=== PATIENT | female | born 1960 | race Caucasian/White ===

== ENCOUNTER → 2016-11-25 | Outpatient (CLI) | payer MEDICARE, MEDICAID ==
[~2016-11-25] MED LIST: ASPI-906 PO; FENO54TA PO; LVT.088T PO
--- NOTE | 2016-11-27 07:48 | Diagnostic Imaging Report ---
Digital mammogram bilateral screening with tomosynthesis. At this time, there are no current complaints. The study was compared to prior exams of 11/12/15, 11/19/14 and 09/20/13. The current study was also evaluated with a Computer Aided Detection (CAD) system. FINDINGS: There are scattered fibroglandular densities in both breasts which could obscure a lesion. When compared to the prior study, there has been no significant change. There is no primary or secondary sign of malignancy noted. The 3D tomographic views also fail to show any sign of malignancy. IMPRESSION: There is no evidence of malignancy. ACR BI-RADS Category 1: Negative. Result letter will be mailed to the patient. Note: At least 10% of breast cancer is not imaged by mammography. Dictated by: Dictated on workstation # [id number]
== END ==
LOC: RAD 09:58
PROVIDERS: ATTEND Nurse Practitioner Community Health
DX: Z12.31 Encounter for screening mammogram for malignant neoplasm of breast (principal)
CPT/HCPCS: 77067

== ENCOUNTER → 2017-12-30 | Outpatient (CLI) | payer MEDICAID, MEDICARE ==
--- NOTE | 2017-12-30 17:40 | Diagnostic Imaging Report ---
PROCEDURE: CT right lower extremity without contrast. TECHNIQUE: Axially acquired CT was obtained through the right lower extremity without intravenous contrast. Coronal and sagittal reformations were also performed. INDICATION: Acetabular fracture. Hip pain. No relevant comparison is available. FINDINGS: There is no current hip dislocation. There are severe end-stage arthritic changes present of the right hip with advanced joint space loss, acetabular and femoral head osteophyte formation and sclerosis. There are also findings of collapse and lucency within the right femoral head compatible with underlying osteonecrosis. There are fractures demonstrated at the anterior aspect of the inferior ramus at the symphysis and also of the mid inferior ramus. This is mildly displaced. There are fractures present through the anterior column of the acetabular roof. No definitive posterior column fracture is evident. There is no diastasis of the SI joint or the pubic symphysis. There is a questioned insufficiency-type fracture through the visualized portion of the right sacrum. IMPRESSION: 1. Anterior column acetabular fracture with fractures of the anterior acetabular roof as well as fractures of the parasymphyseal aspect of the pubic rami and the mid inferior ramus. 2. There is a questioned fracture of the right sacrum. 3. Severe end-stage arthritic changes of the right hip with underlying osteonecrosis. Dictated by: Dictated on workstation # [id number]
== END ==
LOC: RAD 16:42
PROVIDERS: ATTEND Nurse Practitioner Family
DX: S32.43 Fracture of anterior column [iliopubic] of acetabulum (principal); S32.491A Other specified fracture of right acetabulum, initial encounter for closed fracture; S32.591A Other specified fracture of right pubis, initial encounter for closed fracture; M16.11 Unilateral primary osteoarthritis, right hip; M87.88 Other osteonecrosis, other site
CPT/HCPCS: 73700

== ENCOUNTER → 2018-11-30 | Outpatient (CLI) | payer MEDICARE, MEDICAID ==
--- NOTE | 2018-12-01 19:47 | Diagnostic Imaging Report ---
EXAMINATION: Digital mammogram bilateral screening. The current study was also evaluated with a Computer Aided Detection (CAD) system. 3-D tomosynthesis was also performed and reviewed. INDICATION: Screening. This study was compared to the prior exams of 11/28/2017, 11/25/2016, and 11/12/2015. At this time, there are no current complaints. FINDINGS: There are scattered fibroglandular densities in both breasts which could obscure a lesion. When compared to the prior study, there has been no significant change. There is no primary or secondary sign of malignancy noted. The 3D tomographic views also fail to show any sign of malignancy. IMPRESSION: There is no evidence of malignancy. ACR BI-RADS Category 1: Negative. Result letter will be mailed to the patient. Note: At least 10% of breast cancer is not imaged by mammography. Dictated by: Dictated on workstation # [id number]
== END ==
LOC: RAD 09:53
PROVIDERS: ATTEND Nurse Practitioner Family
DX: Z12.31 Encounter for screening mammogram for malignant neoplasm of breast (principal)
CPT/HCPCS: 77067

== ENCOUNTER 2018-12-26 11:08 | Outpatient (RCR) | payer MEDICARE, MEDICAID | END 2018-12-26 15:21 | disposition home or self-care (01) | PROVIDERS: ATTEND Orthopaedic Surgery | DX: Z47.1 Aftercare following joint replacement surgery (principal); Z96.641 Presence of right artificial hip joint ==

== ENCOUNTER → 2022-01-18 | Outpatient (CLI) | payer MEDICARE, MEDICAID ==
--- NOTE | 2022-01-19 13:40 | Diagnostic Imaging Report ---
INDICATION: Routine screening. COMPARISON: 11/30/2018 and 11/28/2017. TECHNIQUE: 2D and 3D bilateral screening mammography was performed with CAD. FINDINGS: Scattered fibroglandular densities are identified bilaterally. The parenchymal pattern is stable. No mass or malignant-appearing microcalcifications are seen. The axillae are unremarkable. IMPRESSION: No mammographic features suspicious for malignancy are identified. ACR BI-RADS Category 1: Negative. Result letter will be mailed to the patient. Note: At least 10% of breast cancer is not imaged by mammography. Dictated by: Dictated on workstation # [id number]
== END ==
LOC: RAD 15:22
PROVIDERS: ATTEND Family Medicine
DX: Z12.31 Encounter for screening mammogram for malignant neoplasm of breast (principal)
CPT/HCPCS: 77063; 77067